=== PATIENT | female | born 1990 | race Caucasian/White ===

== ENCOUNTER 2018-10-19 11:09 | Emergency (ER) | payer OTHER ==
[2018-10-19 12:48] LABS: Urine Blood TRACE (NEG); Urine Glucose NEGATIVE (NEG); Urine Protein NEGATIVE (NEG); Urine pH 6.5 (5.0-7.0)
[2018-10-19 12:50] LABS: Urine Bacteria >50 /HPF (<20); Urine Culture Reflex Order NOT NEEDED; Urine RBC NONE SEEN /HPF (NONE SEEN)
[2018-10-19 12:51] LABS: Urine Mucus HEAVY /HPF (NONE SEEN)
[2018-10-19 13:23] LABS: Absolute Lymphocytes (CBC) 1.7 K/uL (0.7-4.9); Absolute Monocytes 0.3 K/uL (0.1-1.3); Absolute Neutrophil 4.8 K/uL (1.8-8.0); Basophils % 0.9 % (0-1.3); Eosinophils % 0.7 % (0-4.4); Hematocrit 37.9 % (36.0-45.0); Lymphocytes % 24.6 % (15.3-44.8); MPV 10.1 fL (7.6-11.3); Monocytes % 4.9 % (3.3-12.3); RBC Red Blood Cell Count 4.44 M/uL (3.86-4.86)
--- NOTE | 2018-10-19 13:41 | RAD REPORT ---
EXAM DESCRIPTION: US - Transvaginal OB - 10/19/2018 1:34 pm CLINICAL HISTORY: VAGINAL BLEEDING COMPARISON: No comparisons FINDINGS: A single gestational sac is seen within the uterus. The shape of the sac is within normal limits for gestational age. Within the sac is a single pole with crown-rump length of 9 mm, cor relating to estimated gestational age of 6 weeks 6 days. Estimated date of delivery is 06/08/2019. Heart rate is 142 BPM. The placenta is not yet developed due to early gestational age. The maternal adnexa and left ovary are within normal limits. Neither ovary was obscured by bowel gas. Normal Doppler blood flow was demonstrated to the left ovary. 8 x 6 x 5 mm inferiorly located subchorionic bleed present. IMPRESSION: Single live early intrauterine gestation with estimated gestational age of 6 weeks 6 day s, LIBRADO 06/08/2019. Small inferiorly located subchorionic bleed. .
[2018-10-19 13:53] LABS: BUN Blood Urea Nitrogen 8 mg/dL (7-18); Bicarbonate 24 mmol/L (21-32); Glucose Level 94 mg/dL (74-106); HCG, Quantitative 58427 mIU/mL (1-3); Potassium 3.5 mmol/L (3.5-5.1); Sodium Level 138 mmol/L (136-145)
--- NOTE | 2018-10-19 14:56 | ER ---
Nurse's Notes [facility] Name: Ashli Kellogg Age: 28 yrs Sex: Female : 1990 Arrival Date: 10/19/2018 Time: 11:14 Bed 16 Private MD: Diagnosis: Threatened ;Nausea Presentation: 10/19 11:26 Presenting complaint: Patient states: LMP- 08/26/18. i have been having pain on my hj pelvic area nd abdomen and hoang been bleeding for a week; reports nausea; denies fever and chills;. Transition of care: patient was not received from another setting of care. Onset of symptoms was October 19, 2018. Risk Assessment: Do you want to hurt yourself or someone else? Patient reports no desire to harm self or others. Initial Sepsis Screen: Does the patient meet any 2 criteria? No. Patient's initial sepsis screen is negative. Does the patient have a suspected source of infection? No. Patient's initial sepsis screen is negative. Care prior to arrival: None. 11:26 Method Of Arrival: Ambulatory 11:26 Acuity: BRENDA 3 Triage Assessment: 11:28 General: Appears in no apparent distress. uncomfortable, Behavior is calm, cooperative, hj appropriate for age. Pain: Complains of pain in abdomen. : Reports vaginal bleeding that is. 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 - Social history:: Smoking status: Patient/guardian denies using tobacco, Patient/guardian denies using alcohol. - Ebola Screening: : Patient negative for fever greater than or equal to 101.5 degrees Fahrenheit, and additional compatible Ebola Virus Disease symptoms Patient denies exposure to infectious person Patient denies travel to an Ebola-affected area in the 21 days before illness onset. Screenin:28 Abuse screen: Denies threats or abuse. Denies injuries from another. Nutritional hj screening: No deficits noted. Tuberculosis screening: No symptoms or risk factors identified. Fall Risk None identified. Assessment: 12:15 Obstetrical Assessment: Patient reports abdominal cramping. General: Appears in no jl7 apparent distress. uncomfortable, Behavior is calm, cooperative, appropriate for age, pt noted to be eating cookies and drinking tea in lobby, instructed pt not to have anything else to eat or drink until the doctor clears her. Pt verbalized understanding. Pain: Complains of pain in right lower quadrant and left lower quadrant Pain radiates to abdomen Pain currently is 5 out of 10 on a pain scale. at worst was 10 out of 10 on a pain scale. Quality of pain is described as crampy, Pain began 1 week ago Is intermittent. Neuro: Level of Consciousness is awake, alert, obeys commands, Oriented to person, place, time, situation. Cardiovascular: Patient's skin is warm and dry. Respiratory: Airway is patent Respiratory effort is even, unlabored, Respiratory pattern is regular, symmetrical. GI: Abdomen is round non-distended. : Reports vaginal bleeding that is brown, light flow, spotty, since x 1 week. EENT: No signs and/or symptoms were reported regarding the EENT system. Derm: Skin is pink, warm \T\ dry. Musculoskeletal: No signs and/or symptoms reported regarding the musculoskeletal system. 13:15 Reassessment: Patient appears in no apparent distress at this time. No changes from jl7 previously documented assessment. Patient and/or family updated on plan of care and expected duration. Pain level reassessed. Patient is alert, oriented x 3, equal unlabored respirations, skin warm/dry/pink. 14:15 Reassessment: Patient appears in no apparent distress at this time. Patient and/or jl7 family updated on plan of care and expected duration. Pain level reassessed. Patient is alert, oriented x 3, equal unlabored respirations, skin warm/dry/pink. Vital Signs: 11:29 BP 107 / 67; Pulse 61; Resp 18; Temp 98.3(O); Pulse Ox 99% on R/A; Weight 74.39 kg; Height 5 ft. 2 in. (157.48 cm); Pain 5/10; 15:04 BP 105 / 65; Pulse 62; Resp 16 S; Pulse Ox 99% on R/A; jl7 11:29 Body Mass Index 30.00 (74.39 kg, 157.48 cm) ED Course: 11:14 Patient arrived in ED. rg4 11:27 Triage completed. hj 11:28 Arm band placed on right wrist. hj 11:30 Patient has correct armband on for positive identification. Placed in gown. Bed in low hj position. Call light in reach. Side rails up X 1. Adult w/ patient. 11:45 Initial lab(s) drawn, by me, sent to lab. Inserted saline lock: 20 gauge in left jl7 antecubital area, using aseptic technique. Blood collected. 12:00 Sarah Nelson RN is Primary Nurse. jl7 12:16 Cameron Barlow PA is PHCP. cp 12:16 Miguel Obregon MD is Attending Physician. cp 13:35 Ultrasound completed. Patient tolerated well. cy 13:35 US Transvaginal Ob In Process Unspecified. EDMS 15:04 No provider procedures requiring assistance completed. IV discontinued, intact, jl7 bleeding controlled, No redness/swelling at site. Pressure dressing applied. Administered Medications: No medications were administered Outcome: 14:56 Discharge ordered by MD. cp 15:06 Discharged to home ambulatory. jl7 15:06 Condition: stable 15:06 Discharge instructions given to patient, Instructed on discharge instructions, follow up and referral plans. medication usage, Demonstrated understanding of instructions, follow-up care, medications, Prescriptions given X 2. 15:07 Patient left the ED. jl7 Signatures: Dispatcher [employer] EDMS Jose Su RN RN Cameron Flores PA PA cp Garcia, Rubi rg4 Sarah Nelson RN RN jlJames Paulino Corrections: (The following items were deleted from the chart) 11:31 11:29 Pulse 61bpm; Resp 18bpm; Pulse Ox 99% RA; Temp 98.3F Oral; 74.39 kg; Height 5 ft. hj 2 in.; BMI: 30.0; Pain 5/10; hj
--- NOTE | 2018-10-19 14:56 | EDPHYS ---
Physician Documentation [facility] Name: Ashli Kellogg Age: 28 yrs Sex: Female : 1990 Arrival Date: 10/19/2018 Time: 11:14 Bed 16 Private MD: ED Physician Miguel Obregon HPI: 10/19 13:00 This 28 yrs old Female presents to ER via Ambulatory with complaints of cp Vaginal Bleeding, + Preg <12wks, Abdominal Pain. 13:00 The patient presents to the emergency department with vaginal bleeding, that is light. 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 - Social history:: Smoking status: Patient/guardian denies using tobacco, Patient/guardian denies using alcohol. - Ebola Screening: : Patient negative for fever greater than or equal to 101.5 degrees Fahrenheit, and additional compatible Ebola Virus Disease symptoms Patient denies exposure to infectious person Patient denies travel to an Ebola-affected area in the 21 days before illness onset. Vital Signs: 11:29 BP 107 / 67; Pulse 61; Resp 18; Temp 98.3(O); Pulse Ox 99% on R/A; Weight 74.39 kg; hj Height 5 ft. 2 in. (157.48 cm); Pain 5/10; 15:04 BP 105 / 65; Pulse 62; Resp 16 S; Pulse Ox 99% on R/A; jl7 11:29 Body Mass Index 30.00 (74.39 kg, 157.48 cm) hj MDM: 12:16 Patient medically screened. cp 10/19 12:10 Order name: Urine Microscopic Only; Complete Time: 12:56 iw 10/19 12:45 Order name: Urine Dipstick--Ancillary (enter results); Complete Time: 12:56 eb 10/19 12:45 Order name: Urine --Ancillary (enter results); Complete Time: 12:56 eb 10/19 12:57 Order name: Quantitative Hcg; Complete Time: 14:01 cp 10/19 14:01 Interpretation: Reviewed. cp 10/19 12:57 Order name: Abo/rh Typing; Complete Time: 14:52 10/19 12:57 Order name: Basic Metabolic Panel; Complete Time: 14:01 10/19 14:52 Interpretation: Normal except: CL 108. 10/19 11:30 Order name: Urine Dipstick-Ancillary (obtain specimen); Complete Time: 12:10 10/19 11:30 Order name: Urine Test (obtain specimen); Complete Time: 12:10 10/19 12:57 Order name: CBC with Diff; Complete Time: 14:01 10/19 12:57 Order name: IV Saline Lock; Complete Time: 13:12 10/19 12:57 Order name: Labs collected and sent; Complete Time: 13:12 10/19 12:57 Order name: NPO; Complete Time: 13:12 10/19 12:57 Order name: US Transvaginal Ob; Complete Time: 14:01 cp Administered Medications: No medications were administered Disposition: 10/19/18 14:56 Discharged to Home. Impression: Threatened , Nausea. - Condition is Stable. - Discharge Instructions: Threatened Miscarriage, Vaginal Bleeding During , First Trimester, Pelvic Rest. - Prescriptions for Diclegis 10- 10 mg Oral tablet,delayed release (DR/EC) - take 1 tablet by ORAL route as directed As needed 1 tablet prior to meals and 2 tablets at bedtime; 30 tablet. Vitamin 27- 0.8 mg Oral Tablet - take 1 tablet by ORAL route once daily; 60 tablet. - Medication Reconciliation Form, Thank You Letter, Antibiotic Education, Prescription Opioid Use form. - Follow up: Private Physician; When: 1 week; Reason: Recheck today's complaints. - Problem is new. - Symptoms have improved. Addendum: 10/20/2018 17:44 Co-signature as Attending Physician, Miguel Obregon MD. g s Signatures: Dispatcher [employer] EDIA Jose Su RN RN hj Cameron Barlow PA PA cp Leal, Jahala, RN RN jl7 Miguel Obregon MD MD gs Corrections: (The following items were deleted from the chart) 10/19 15:07 14:56 10/19/2018 14:56 Discharged to Home. Impression: Threatened ; Nausea. jl7 Condition is Stable. Forms are Medication Reconciliation Form, Thank You Letter, Antibiotic Education, Prescription Opioid Use. Follow up: Private Physician; When: 1 week; Reason: Recheck today's complaints. Problem is new. Symptoms have improved. cp
[2018-10-19 16:01] VITALS: TEMP 98.3; O2SAT 99
[2018-10-19 16:02] VITALS: BP 105/65
== END 2018-10-19 15:07 | disposition home or self-care (01) ==
LOC: ER 11:09
DX: O20.0 Threatened abortion (principal); Z3A.01 Less than 8 weeks gestation of pregnancy
CPT/HCPCS: 36415; 76817; 80048; 81003; 81015; 81025; 84702; 85025; 86900; 86901; 99284